=== PATIENT | female | born 1980 | race Two or more races ===

== ENCOUNTER 2018-08-30 08:46 | Inpatient (IN) | payer MEDICAID ==
[2018-08-30] MEDS: LIDOCAINE 1% (MDV) 20 ML INJ SC ×2 (09:29→10:59)
[2018-08-30] MEDS: HYDROCODONE/APAP (5/325) TAB PO ×3 (10:59→20:46)
[2018-08-30] MEDS: morphine 4 MG/ML VIAL IV (14:55)
[2018-08-30] MEDS: SOD CHLORIDE 0.9% 1,000 ML IV (14:55)
[2018-08-30] MEDS: ONDANSETRON 4 MG INJ IV (14:56)
[2018-08-30 15:03] LABS: ADD MAN DIFF? NO
[2018-08-30 15:09] LABS: WHITE BLOOD COUNT 13.1 10^3/ul (4.8-10.8)
[2018-08-30 15:09] LABS: BASOPHIL # 0.1 10^3/ul (0.0-0.1); BASOPHILS % 0.6 % (0.0-2.0); EOSINOPHILS # 0.1 10^3/ul (0.0-0.5); EOSINOPHILS % 0.5 % (0.0-7.0); HEMATOCRIT 41.6 % (37.0-47.0); HEMOGLOBIN 14.3 g/dl (12.0-16.0); LYMPHOCYTES # 3.2 10^3/ul (0.8-2.9); LYMPHOCYTES % 24.2 % (15.0-51.0); MEAN CORPUSCULAR HEMOGLOBIN 31.4 pg (29.0-33.0); MEAN CORPUSCULAR HGB CONC 34.4 g/dl (32.0-37.0); MEAN CORPUSCULAR VOLUME 91.4 fl (82.0-101.0); MEAN PLATELET VOLUME 10.1 fl (7.4-10.4); MONOCYTE # 0.8 10^3/ul (0.3-0.9); MONOCYTES % 6.3 % (0.0-11.0); NEUTROPHIL # 8.9 10^3/ul (1.6-7.5); PLATELET COUNT 329 10^3/UL (140-415); RED BLOOD COUNT 4.55 10^6/ul (4.20-5.40); RED CELL DISTRIBUTION WIDTH 11.7 % (11.5-14.5)
[2018-08-30] MEDS: PIPER-TAZO 3.375 GM IV (PMX) 100 ML IVPB (15:12)
[2018-08-30 15:33] LABS: ALANINE AMINOTRANSFERASE 15 IU/L (13-69); ALBUMIN 4.2 g/dl (3.3-4.9); ALKALINE PHOSPHATASE 69 IU/L (42-121); ANION GAP 9 (5-13); ASPARTATE AMINO TRANSFERASE 24 IU/L (15-46); BILIRUBIN,INDIRECT 0.9 mg/dl (0-1.1); BILIRUBIN,TOTAL 0.9 mg/dl (0.2-1.3); BLOOD UREA NITROGEN 6 mg/dl (7-20); CALCIUM 9.7 mg/dl (8.4-10.2); CARBON DIOXIDE 30 mmol/L (21-31); CHLORIDE 99 mmol/L (97-110); CREATININE 0.38 mg/dl (0.44-1.00); Estimated GFR > 60 mL/min (>60); GLUCOSE 277 mg/dl (70-220); POTASSIUM 4.3 mmol/L (3.5-5.1); SODIUM 138 mmol/L (135-144); TOTAL PROTEIN 7.2 g/dl (6.1-8.1)
[2018-08-30] MEDS: FLUCONAZOLE 150 MG TAB PO (16:04)
[2018-08-30] MEDS ORDERED: ACETAMINOPHEN 325 MG TAB PO ×2 (18:00→22:00)
[2018-08-30] MEDS ORDERED: ONDANSETRON 4 MG INJ IV (18:00)
[2018-08-30] MEDS: morphine 2 MG INJ IV (20:46)
[2018-08-30] MEDS: ONDANSETRON (ODT) 4 MG TAB ODT (20:46)
[2018-08-30] MEDS: SOD CHLORIDE 0.9% 500 ML IV (20:49)
[2018-08-30] MEDS ORDERED: DEXTROSE 50% 50 ML SYRINGE IV ×2 (22:00)
[2018-08-30] MEDS ORDERED: GLUCOSE GEL 15 GRAM TUBE BUCCAL (22:00)
[2018-08-30] MEDS ORDERED: GLUCAGON 1 MG INJ IM (22:00)
[2018-08-30] MEDS ORDERED: GLUCOSE GEL 15 GRAM TUBE PO ×2 (22:00)
[2018-08-30] MEDS: INSULIN GLARGINE [LANTus] (100 UNITS/ML) SYG SC (22:53)
[2018-08-30] MEDS: INSULIN ASPART [NOVOLOG] 3 ML PEN SC (22:56)
[2018-08-31] MEDS: ACCU-CHEK XX (02:14)
[2018-08-31] MEDS: morphine 2 MG INJ IV ×5 (02:19→21:38)
[2018-08-31 07:14] LABS: ADD MAN DIFF? NO
[2018-08-31 07:18] LABS: BASOPHIL # 0.1 10^3/ul (0.0-0.1); BASOPHILS % 0.5 % (0.0-2.0); EOSINOPHILS # 0.1 10^3/ul (0.0-0.5); HEMATOCRIT 34.4 % (37.0-47.0); HEMOGLOBIN 11.8 g/dl (12.0-16.0); LYMPHOCYTES # 3.4 10^3/ul (0.8-2.9); LYMPHOCYTES % 34.3 % (15.0-51.0); MEAN CORPUSCULAR HEMOGLOBIN 31.8 pg (29.0-33.0); MEAN CORPUSCULAR HGB CONC 34.3 g/dl (32.0-37.0); MEAN CORPUSCULAR VOLUME 92.7 fl (82.0-101.0); MEAN PLATELET VOLUME 10.2 fl (7.4-10.4); MONOCYTE # 0.8 10^3/ul (0.3-0.9); NEUTROPHIL # 5.6 10^3/ul (1.6-7.5); NEUTROPHILS % 55.6 % (39.0-77.0); PLATELET COUNT 278 10^3/UL (140-415); RED BLOOD COUNT 3.71 10^6/ul (4.20-5.40); RED CELL DISTRIBUTION WIDTH 11.8 % (11.5-14.5)
[2018-08-31 07:50] LABS: ALANINE AMINOTRANSFERASE 16 IU/L (13-69); ALBUMIN 3.2 g/dl (3.3-4.9); ALBUMIN/GLOBULIN RATIO 1.06; ALKALINE PHOSPHATASE 54 IU/L (42-121); ANION GAP 8 (5-13); ASPARTATE AMINO TRANSFERASE 19 IU/L (15-46); BILIRUBIN,INDIRECT 0.7 mg/dl (0-1.1); BILIRUBIN,TOTAL 0.7 mg/dl (0.2-1.3); BLOOD UREA NITROGEN 7 mg/dl (7-20); CARBON DIOXIDE 29 mmol/L (21-31); CHLORIDE 100 mmol/L (97-110); CREATININE 0.38 mg/dl (0.44-1.00); Estimated GFR > 60 mL/min (>60); GLUCOSE 233 mg/dl (70-220); POTASSIUM 3.5 mmol/L (3.5-5.1); SODIUM 137 mmol/L (135-144); TOTAL PROTEIN 6.2 g/dl (6.1-8.1)
[2018-08-31] MEDS: metFORMIN 500 MG TAB PO ×2 (08:22→17:21)
[2018-08-31] MEDS: INSULIN ASPART [NOVOLOG] 3 ML PEN SC ×5 (08:22→20:31)
[2018-08-31 08:52] LABS: HEMOGLOBIN A1C 13.9 % (0-5.9)
[2018-08-31] MEDS: FLUCONAZOLE 200 MG (PMX) 100 ML IVPB (15:49)
[2018-08-31] MEDS ORDERED: INSULIN GLARGINE [LANTus] (100 UNITS/ML) SYG SC (20:00)
[2018-08-31] MEDS: INSULIN GLARGINE [LANTus] (100 UNITS/ML) SYG SC (20:32)
[2018-09-01] MEDS: morphine 2 MG INJ IV ×6 (01:26→22:10)
[2018-09-01] MEDS: ACCU-CHEK XX (01:31)
[2018-09-01] MEDS ORDERED: VITAMIN A & D 5 GM OINT PACKET TOP (02:42)
[2018-09-01 06:05] LABS: ADD MAN DIFF? NO
[2018-09-01 06:07] LABS: WHITE BLOOD COUNT 11.5 10^3/ul (4.8-10.8)
[2018-09-01 06:07] LABS: BASOPHIL # 0.1 10^3/ul (0.0-0.1); BASOPHILS % 0.4 % (0.0-2.0); EOSINOPHILS # 0.1 10^3/ul (0.0-0.5); HEMOGLOBIN 12.5 g/dl (12.0-16.0); LYMPHOCYTES # 2.8 10^3/ul (0.8-2.9); LYMPHOCYTES % 24.1 % (15.0-51.0); MEAN CORPUSCULAR HEMOGLOBIN 31.1 pg (29.0-33.0); MEAN CORPUSCULAR HGB CONC 33.8 g/dl (32.0-37.0); MEAN PLATELET VOLUME 9.9 fl (7.4-10.4); MONOCYTE # 0.9 10^3/ul (0.3-0.9); MONOCYTES % 7.8 % (0.0-11.0); NEUTROPHIL # 7.6 10^3/ul (1.6-7.5); NEUTROPHILS % 66.1 % (39.0-77.0); PLATELET COUNT 297 10^3/UL (140-415); RED BLOOD COUNT 4.02 10^6/ul (4.20-5.40); RED CELL DISTRIBUTION WIDTH 11.9 % (11.5-14.5)
[2018-09-01 06:37] LABS: ALANINE AMINOTRANSFERASE 13 IU/L (13-69); ALBUMIN 3.4 g/dl (3.3-4.9); ALBUMIN/GLOBULIN RATIO 1.17; ALKALINE PHOSPHATASE 53 IU/L (42-121); ANION GAP 6 (5-13); ASPARTATE AMINO TRANSFERASE 26 IU/L (15-46); BILIRUBIN,INDIRECT 0.5 mg/dl (0-1.1); BILIRUBIN,TOTAL 0.5 mg/dl (0.2-1.3); BLOOD UREA NITROGEN 9 mg/dl (7-20); CALCIUM 9.1 mg/dl (8.4-10.2); CARBON DIOXIDE 32 mmol/L (21-31); CHLORIDE 98 mmol/L (97-110); CREATININE 0.43 mg/dl (0.44-1.00); Estimated GFR > 60 mL/min (>60); GLUCOSE 217 mg/dl (70-220); POTASSIUM 4.2 mmol/L (3.5-5.1); SODIUM 136 mmol/L (135-144); TOTAL PROTEIN 6.3 g/dl (6.1-8.1)
[2018-09-01] MEDS: metFORMIN 500 MG TAB PO ×2 (08:30→17:11)
[2018-09-01] MEDS: INSULIN ASPART [NOVOLOG] 3 ML PEN SC ×7 (08:32→20:44)
[2018-09-01] MEDS: HYDROCODONE/APAP (5/325) TAB PO ×3 (10:45→23:35)
[2018-09-01] MEDS: FLUCONAZOLE 200 MG (PMX) 100 ML IVPB (14:51)
[2018-09-01] MEDS: PIPER-TAZO 3.375 GM IV (PMX) 100 ML IVPB ×2 (16:54→22:11)
[2018-09-01] MEDS: INSULIN GLARGINE [LANTus] (100 UNITS/ML) SYG SC (20:43)
[2018-09-02] MEDS: morphine 2 MG INJ IV ×5 (02:37→21:01)
[2018-09-02] MEDS: ACCU-CHEK XX (02:39)
[2018-09-02] MEDS: PIPER-TAZO 3.375 GM IV (PMX) 100 ML IVPB ×3 (05:43→20:53)
[2018-09-02 06:19] LABS: ADD MAN DIFF? NO
[2018-09-02 06:24] LABS: WHITE BLOOD COUNT 11.9 10^3/ul (4.8-10.8)
[2018-09-02 06:24] LABS: BASOPHIL # 0.1 10^3/ul (0.0-0.1); BASOPHILS % 0.4 % (0.0-2.0); EOSINOPHILS # 0.1 10^3/ul (0.0-0.5); EOSINOPHILS % 1.1 % (0.0-7.0); HEMATOCRIT 34.4 % (37.0-47.0); HEMOGLOBIN 11.7 g/dl (12.0-16.0); LYMPHOCYTES # 3.4 10^3/ul (0.8-2.9); LYMPHOCYTES % 28.4 % (15.0-51.0); MEAN CORPUSCULAR HEMOGLOBIN 31.3 pg (29.0-33.0); MONOCYTES % 8.3 % (0.0-11.0); NEUTROPHIL # 7.3 10^3/ul (1.6-7.5); NEUTROPHILS % 61.3 % (39.0-77.0); PLATELET COUNT 284 10^3/UL (140-415); RED BLOOD COUNT 3.74 10^6/ul (4.20-5.40); RED CELL DISTRIBUTION WIDTH 11.9 % (11.5-14.5)
[2018-09-02 06:48] LABS: ALANINE AMINOTRANSFERASE 17 IU/L (13-69); ALBUMIN 3.3 g/dl (3.3-4.9); ALBUMIN/GLOBULIN RATIO 1.03; ALKALINE PHOSPHATASE 53 IU/L (42-121); ANION GAP 8 (5-13); ASPARTATE AMINO TRANSFERASE 20 IU/L (15-46); BILIRUBIN,INDIRECT 0.4 mg/dl (0-1.1); BILIRUBIN,TOTAL 0.4 mg/dl (0.2-1.3); BLOOD UREA NITROGEN 9 mg/dl (7-20); CALCIUM 9.1 mg/dl (8.4-10.2); CARBON DIOXIDE 29 mmol/L (21-31); CHLORIDE 98 mmol/L (97-110); Estimated GFR > 60 mL/min (>60); GLUCOSE 203 mg/dl (70-220); POTASSIUM 3.5 mmol/L (3.5-5.1); SODIUM 135 mmol/L (135-144); TOTAL PROTEIN 6.5 g/dl (6.1-8.1)
[2018-09-02] MEDS: HYDROCODONE/APAP (5/325) TAB PO ×2 (07:44→17:21)
[2018-09-02] MEDS: metFORMIN 500 MG TAB PO ×2 (08:29→17:24)
[2018-09-02] MEDS: INSULIN ASPART [NOVOLOG] 3 ML PEN SC ×7 (08:31→20:53)
[2018-09-02] MEDS: DOCUSATE SODIUM 100 MG CAP PO ×2 (09:30→20:45)
[2018-09-02] MEDS ORDERED: ONDANSETRON 4 MG INJ IV (09:30)
[2018-09-02] MEDS: METOCLOPRAMIDE 10 MG INJ IV ×4 (09:39→23:46)
[2018-09-02] MEDS: INSULIN GLARGINE [LANTus] (100 UNITS/ML) SYG SC ×2 (11:22→20:52)
[2018-09-02] MEDS: FLUCONAZOLE 200 MG (PMX) 100 ML IVPB (15:22)
[2018-09-03] MEDS: ACCU-CHEK XX ×3 (02:00→20:23)
[2018-09-03] MEDS: METOCLOPRAMIDE 10 MG INJ IV ×3 (06:28→17:32)
[2018-09-03] MEDS: PIPER-TAZO 3.375 GM IV (PMX) 100 ML IVPB ×3 (06:28→21:19)
[2018-09-03] MEDS: morphine 2 MG INJ IV ×4 (06:57→21:27)
[2018-09-03 07:44] LABS: ADD MAN DIFF? NO
[2018-09-03 07:45] LABS: WHITE BLOOD COUNT 12.2 10^3/ul (4.8-10.8)
[2018-09-03 07:46] LABS: BASOPHIL # 0.1 10^3/ul (0.0-0.1); BASOPHILS % 0.5 % (0.0-2.0); EOSINOPHILS # 0.1 10^3/ul (0.0-0.5); EOSINOPHILS % 0.5 % (0.0-7.0); HEMATOCRIT 35.3 % (37.0-47.0); LYMPHOCYTES % 24.9 % (15.0-51.0); MEAN CORPUSCULAR HEMOGLOBIN 31.5 pg (29.0-33.0); MEAN CORPUSCULAR VOLUME 92.7 fl (82.0-101.0); MEAN PLATELET VOLUME 9.8 fl (7.4-10.4); MONOCYTES % 8.2 % (0.0-11.0); NEUTROPHIL # 7.9 10^3/ul (1.6-7.5); NEUTROPHILS % 65.3 % (39.0-77.0); PLATELET COUNT 323 10^3/UL (140-415); RED BLOOD COUNT 3.81 10^6/ul (4.20-5.40); RED CELL DISTRIBUTION WIDTH 11.7 % (11.5-14.5)
[2018-09-03 08:12] LABS: ALANINE AMINOTRANSFERASE 10 IU/L (13-69); ALBUMIN 3.4 g/dl (3.3-4.9); ALBUMIN/GLOBULIN RATIO 1.09; ALKALINE PHOSPHATASE 51 IU/L (42-121); ANION GAP 8 (5-13); ASPARTATE AMINO TRANSFERASE 26 IU/L (15-46); BILIRUBIN,INDIRECT 0.4 mg/dl (0-1.1); BILIRUBIN,TOTAL 0.4 mg/dl (0.2-1.3); BLOOD UREA NITROGEN 6 mg/dl (7-20); CALCIUM 9.1 mg/dl (8.4-10.2); CARBON DIOXIDE 28 mmol/L (21-31); CHLORIDE 100 mmol/L (97-110); CREATININE 0.39 mg/dl (0.44-1.00); Estimated GFR > 60 mL/min (>60); GLUCOSE 133 mg/dl (70-220); POTASSIUM 3.7 mmol/L (3.5-5.1); SODIUM 136 mmol/L (135-144); TOTAL PROTEIN 6.5 g/dl (6.1-8.1)
[2018-09-03] MEDS: INSULIN ASPART [NOVOLOG] 3 ML PEN SC ×7 (08:37→20:23)
[2018-09-03] MEDS: DOCUSATE SODIUM 100 MG CAP PO ×2 (08:38→20:23)
[2018-09-03] MEDS: metFORMIN 500 MG TAB PO (08:39)
[2018-09-03] MEDS: THIAMINE 100 MG TAB PO (12:15)
[2018-09-03] MEDS: FLUCONAZOLE 200 MG (PMX) 100 ML IVPB (13:39)
[2018-09-03] MEDS: GLIMEPIRIDE 2 MG TAB PO (17:32)
[2018-09-03] MEDS: metFORMIN 850 MG TAB PO (17:32)
[2018-09-03] MEDS: INSULIN GLARGINE [LANTus] (100 UNITS/ML) SYG SC (20:22)
[2018-09-04] MEDS: METOCLOPRAMIDE 10 MG INJ IV ×2 (00:36→06:11)
[2018-09-04] MEDS: ACCU-CHEK XX ×5 (02:00→20:28)
[2018-09-04] MEDS: PIPER-TAZO 3.375 GM IV (PMX) 100 ML IVPB (06:11)
[2018-09-04] MEDS: DOCUSATE SODIUM 100 MG CAP PO ×2 (07:31→20:14)
[2018-09-04] MEDS: INSULIN ASPART [NOVOLOG] 3 ML PEN SC ×4 (07:47→20:22)
[2018-09-04] MEDS: GLIMEPIRIDE 2 MG TAB PO ×2 (07:50→17:45)
[2018-09-04] MEDS: metFORMIN 850 MG TAB PO ×2 (07:50→17:46)
[2018-09-04] MEDS: THIAMINE 100 MG TAB PO (07:51)
[2018-09-04] MEDS ORDERED: VANCOMYCIN 1 GM (PMX) 250 ML IVPB (10:30)
[2018-09-04] MEDS ORDERED: VANCOMYCIN IV PER PHARMACY XX (11:00)
[2018-09-04] MEDS: morphine 2 MG INJ IV ×2 (12:01→20:13)
[2018-09-04] MEDS: VANCOMYCIN HCL 1.5 GM in SOD CHLORIDE 0.9% 250 ML IVPB (13:05)
[2018-09-04] MEDS: HYDROCODONE/APAP (5/325) TAB PO ×2 (14:16→23:35)
[2018-09-04] MEDS: DOXYCYCLINE 100 MG TAB PO (20:14)
[2018-09-04] MEDS: FLUCONAZOLE 200 MG (PMX) 100 ML IVPB (20:15)
[2018-09-04] MEDS: INSULIN GLARGINE [LANTus] (100 UNITS/ML) SYG SC (20:27)
[2018-09-04] MEDS: VANCOMYCIN 750 MG (PMX) 250 ML IVPB (23:29)
[2018-09-05] MEDS: ACCU-CHEK XX ×5 (02:00→21:11)
[2018-09-05] MEDS: INSULIN ASPART [NOVOLOG] 3 ML PEN SC ×4 (08:00→21:00)
[2018-09-05] MEDS: GLIMEPIRIDE 2 MG TAB PO ×2 (08:23→17:08)
[2018-09-05] MEDS: DOXYCYCLINE 100 MG TAB PO (08:23)
[2018-09-05] MEDS: THIAMINE 100 MG TAB PO (08:23)
[2018-09-05] MEDS: HYDROCODONE/APAP (5/325) TAB PO ×2 (08:23→20:12)
[2018-09-05] MEDS: DOCUSATE SODIUM 100 MG CAP PO ×2 (08:23→20:11)
[2018-09-05] MEDS: metFORMIN 850 MG TAB PO ×2 (08:24→17:08)
[2018-09-05 09:03] LABS: ADD MAN DIFF? NO
[2018-09-05 09:05] LABS: WHITE BLOOD COUNT 10.7 10^3/ul (4.8-10.8)
[2018-09-05 09:05] LABS: BASOPHIL # 0.1 10^3/ul (0.0-0.1); BASOPHILS % 0.7 % (0.0-2.0); EOSINOPHILS # 0.2 10^3/ul (0.0-0.5); EOSINOPHILS % 1.4 % (0.0-7.0); HEMATOCRIT 36.4 % (37.0-47.0); HEMOGLOBIN 12.1 g/dl (12.0-16.0); LYMPHOCYTES # 3.1 10^3/ul (0.8-2.9); MEAN CORPUSCULAR HEMOGLOBIN 30.9 pg (29.0-33.0); MEAN CORPUSCULAR HGB CONC 33.2 g/dl (32.0-37.0); MEAN CORPUSCULAR VOLUME 93.1 fl (82.0-101.0); MEAN PLATELET VOLUME 9.8 fl (7.4-10.4); MONOCYTE # 1.1 10^3/ul (0.3-0.9); NEUTROPHIL # 6.3 10^3/ul (1.6-7.5); NEUTROPHILS % 58.6 % (39.0-77.0); PLATELET COUNT 345 10^3/UL (140-415); RED BLOOD COUNT 3.91 10^6/ul (4.20-5.40); RED CELL DISTRIBUTION WIDTH 11.8 % (11.5-14.5)
[2018-09-05] MEDS: morphine 2 MG INJ IV ×2 (11:15→21:50)
[2018-09-05] MEDS: VANCOMYCIN 750 MG (PMX) 250 ML IVPB (11:16)
[2018-09-05] MEDS: FLUCONAZOLE 200 MG (PMX) 100 ML IVPB (13:57)
[2018-09-05] MEDS: CLINDAMYCIN 600 MG/D5W (PMX) 50 ML IVPB ×2 (15:13→21:47)
[2018-09-05] MEDS: INSULIN GLARGINE [LANTus] (100 UNITS/ML) SYG SC ×2 (20:00→20:51)
[2018-09-06] MEDS: ACCU-CHEK XX ×5 (02:00→21:00)
[2018-09-06] MEDS: CLINDAMYCIN 600 MG/D5W (PMX) 50 ML IVPB ×3 (05:56→22:03)
[2018-09-06] MEDS: GLIMEPIRIDE 2 MG TAB PO ×2 (06:55→17:11)
[2018-09-06] MEDS: INSULIN ASPART [NOVOLOG] 3 ML PEN SC ×4 (08:00→21:00)
[2018-09-06] MEDS: metFORMIN 850 MG TAB PO ×2 (08:25→17:11)
[2018-09-06] MEDS: THIAMINE 100 MG TAB PO (08:25)
[2018-09-06] MEDS: morphine 2 MG INJ IV ×3 (08:25→17:32)
[2018-09-06] MEDS: DOCUSATE SODIUM 100 MG CAP PO ×2 (08:30→20:18)
[2018-09-06 08:50] LABS: ADD MAN DIFF? NO
[2018-09-06 08:52] LABS: WHITE BLOOD COUNT 9.6 10^3/ul (4.8-10.8)
[2018-09-06 08:52] LABS: BASOPHIL # 0.1 10^3/ul (0.0-0.1); BASOPHILS % 0.5 % (0.0-2.0); EOSINOPHILS # 0.1 10^3/ul (0.0-0.5); EOSINOPHILS % 1.5 % (0.0-7.0); HEMATOCRIT 36.9 % (37.0-47.0); HEMOGLOBIN 12.4 g/dl (12.0-16.0); LYMPHOCYTES # 2.4 10^3/ul (0.8-2.9); LYMPHOCYTES % 24.6 % (15.0-51.0); MEAN CORPUSCULAR HEMOGLOBIN 30.9 pg (29.0-33.0); MEAN CORPUSCULAR HGB CONC 33.6 g/dl (32.0-37.0); MEAN PLATELET VOLUME 9.3 fl (7.4-10.4); MONOCYTE # 0.9 10^3/ul (0.3-0.9); MONOCYTES % 9.6 % (0.0-11.0); NEUTROPHIL # 6.1 10^3/ul (1.6-7.5); NEUTROPHILS % 63.2 % (39.0-77.0); PLATELET COUNT 384 10^3/UL (140-415); RED BLOOD COUNT 4.01 10^6/ul (4.20-5.40); RED CELL DISTRIBUTION WIDTH 11.7 % (11.5-14.5)
[2018-09-06 09:21] LABS: ALANINE AMINOTRANSFERASE 11 IU/L (13-69); ALBUMIN 3.7 g/dl (3.3-4.9); ALBUMIN/GLOBULIN RATIO 1.05; ALKALINE PHOSPHATASE 61 IU/L (42-121); ANION GAP 9 (5-13); ASPARTATE AMINO TRANSFERASE 39 IU/L (15-46); BILIRUBIN,INDIRECT 0.3 mg/dl (0-1.1); BILIRUBIN,TOTAL 0.3 mg/dl (0.2-1.3); BLOOD UREA NITROGEN 8 mg/dl (7-20); CALCIUM 9.6 mg/dl (8.4-10.2); CARBON DIOXIDE 28 mmol/L (21-31); CHLORIDE 103 mmol/L (97-110); CREATININE 0.44 mg/dl (0.44-1.00); Estimated GFR > 60 mL/min (>60); GLUCOSE 127 mg/dl (70-220); POTASSIUM 4.1 mmol/L (3.5-5.1); SODIUM 140 mmol/L (135-144); TOTAL PROTEIN 7.2 g/dl (6.1-8.1)
[2018-09-06] MEDS: HYDROCODONE/APAP (5/325) TAB PO ×2 (12:09→20:18)
[2018-09-06] MEDS: FLUCONAZOLE 200 MG (PMX) 100 ML IVPB (15:24)
[2018-09-06] MEDS: INSULIN GLARGINE [LANTus] (100 UNITS/ML) SYG SC (20:22)
[2018-09-07] MEDS: ACCU-CHEK XX ×5 (02:00→20:50)
[2018-09-07] MEDS: HYDROCODONE/APAP (5/325) TAB PO ×2 (02:20→09:00)
[2018-09-07] MEDS: CLINDAMYCIN 600 MG/D5W (PMX) 50 ML IVPB ×3 (05:33→22:10)
[2018-09-07] MEDS: DOCUSATE SODIUM 100 MG CAP PO ×2 (09:00→20:50)
[2018-09-07] MEDS: metFORMIN 850 MG TAB PO ×2 (09:00→17:11)
[2018-09-07] MEDS: GLIMEPIRIDE 2 MG TAB PO ×2 (09:01→17:11)
[2018-09-07] MEDS: THIAMINE 100 MG TAB PO (09:01)
[2018-09-07] MEDS: INSULIN ASPART [NOVOLOG] 3 ML PEN SC ×4 (09:01→20:48)
[2018-09-07] MEDS: FLUCONAZOLE 200 MG (PMX) 100 ML IVPB (14:55)
[2018-09-07] MEDS: morphine 2 MG INJ IV ×2 (17:52→20:52)
[2018-09-07] MEDS: INSULIN GLARGINE [LANTus] (100 UNITS/ML) SYG SC (20:49)
[2018-09-08] MEDS: HYDROCODONE/APAP (5/325) TAB PO ×2 (00:05→18:33)
[2018-09-08] MEDS: ACCU-CHEK XX ×5 (02:00→21:06)
[2018-09-08] MEDS: CLINDAMYCIN 600 MG/D5W (PMX) 50 ML IVPB ×3 (05:36→21:01)
[2018-09-08] MEDS: LEVOFLOXACIN 500 MG TAB PO (05:36)
[2018-09-08] MEDS: INSULIN ASPART [NOVOLOG] 3 ML PEN SC ×4 (08:00→21:00)
[2018-09-08] MEDS: metFORMIN 850 MG TAB PO ×2 (08:36→17:18)
[2018-09-08] MEDS: GLIMEPIRIDE 2 MG TAB PO ×2 (08:36→17:18)
[2018-09-08] MEDS: DOCUSATE SODIUM 100 MG CAP PO ×2 (08:39→21:00)
[2018-09-08] MEDS: THIAMINE 100 MG TAB PO (08:39)
[2018-09-08] MEDS: morphine 2 MG INJ IV ×3 (10:25→22:53)
[2018-09-08] MEDS: FLUCONAZOLE 200 MG (PMX) 100 ML IVPB (15:45)
[2018-09-08] MEDS ORDERED: SOD CHLORIDE 0.9% 1,000 ML IV (18:00)
[2018-09-08] MEDS: INSULIN GLARGINE [LANTus] (100 UNITS/ML) SYG SC (21:02)
[2018-09-09] MEDS: ACCU-CHEK XX ×5 (02:00→21:00)
[2018-09-09] MEDS: LEVOFLOXACIN 500 MG TAB PO (05:32)
[2018-09-09] MEDS: HYDROCODONE/APAP (5/325) TAB PO ×2 (05:33→19:30)
[2018-09-09] MEDS: CLINDAMYCIN 600 MG/D5W (PMX) 50 ML IVPB ×3 (05:33→22:54)
[2018-09-09] MEDS: INSULIN ASPART [NOVOLOG] 3 ML PEN SC ×4 (08:00→21:00)
[2018-09-09] MEDS: GLIMEPIRIDE 2 MG TAB PO ×2 (08:12→17:19)
[2018-09-09] MEDS: DOCUSATE SODIUM 100 MG CAP PO ×2 (08:12→21:00)
[2018-09-09] MEDS: metFORMIN 850 MG TAB PO ×2 (08:13→17:19)
[2018-09-09] MEDS: THIAMINE 100 MG TAB PO (08:13)
[2018-09-09] MEDS: morphine 2 MG INJ IV (12:08)
[2018-09-09] MEDS: FLUCONAZOLE 200 MG (PMX) 100 ML IVPB (13:48)
[2018-09-09] MEDS: INSULIN GLARGINE [LANTus] (100 UNITS/ML) SYG SC (21:14)
[2018-09-10] MEDS: DEXTROSE 5%-0.45% NACL 1,000 ML IV ×2 (00:24→08:29)
[2018-09-10] MEDS: INSULIN ASPART [NOVOLOG] 3 ML PEN SC ×6 (00:33→23:15)
[2018-09-10] MEDS: morphine 2 MG INJ IV ×2 (01:20→12:10)
[2018-09-10] MEDS: CLINDAMYCIN 600 MG/D5W (PMX) 50 ML IVPB ×2 (05:06→16:56)
[2018-09-10] MEDS: ACCU-CHEK XX ×4 (06:08→23:15)
[2018-09-10] MEDS: GLIMEPIRIDE 2 MG TAB PO ×2 (06:09→17:18)
[2018-09-10] MEDS: LEVOFLOXACIN 500 MG TAB PO (06:11)
[2018-09-10] MEDS: THIAMINE 100 MG TAB PO (08:25)
[2018-09-10] MEDS: DOCUSATE SODIUM 100 MG CAP PO ×2 (08:25→23:16)
[2018-09-10] MEDS: metFORMIN 850 MG TAB PO ×2 (08:25→17:18)
[2018-09-10 11:33] LABS: ADD MAN DIFF? NO
[2018-09-10 11:42] LABS: BASOPHIL # 0.1 10^3/ul (0.0-0.1); BASOPHILS % 0.7 % (0.0-2.0); EOSINOPHILS # 0.1 10^3/ul (0.0-0.5); EOSINOPHILS % 1.6 % (0.0-7.0); HEMATOCRIT 38.3 % (37.0-47.0); LYMPHOCYTES # 2.6 10^3/ul (0.8-2.9); LYMPHOCYTES % 37.3 % (15.0-51.0); MEAN CORPUSCULAR HEMOGLOBIN 30.9 pg (29.0-33.0); MEAN CORPUSCULAR HGB CONC 33.9 g/dl (32.0-37.0); MEAN PLATELET VOLUME 9.2 fl (7.4-10.4); MONOCYTE # 0.5 10^3/ul (0.3-0.9); MONOCYTES % 7.6 % (0.0-11.0); NEUTROPHIL # 3.6 10^3/ul (1.6-7.5); NEUTROPHILS % 51.7 % (39.0-77.0); PLATELET COUNT 510 10^3/UL (140-415); RED BLOOD COUNT 4.21 10^6/ul (4.20-5.40); RED CELL DISTRIBUTION WIDTH 11.8 % (11.5-14.5)
[2018-09-10] MEDS: FLUCONAZOLE 200 MG (PMX) 100 ML IVPB (13:53)
[2018-09-10] MEDS: HYDROCODONE/APAP (5/325) TAB PO (13:54)
[2018-09-10] MEDS ORDERED: AMPICILLIN/SULB 3 GM/NS (PMX) 100 ML IVPB (18:00)
[2018-09-10] MEDS ORDERED: MIDAZOLAM 1 MG/ML 2 ML INJ (20:43)
[2018-09-10] MEDS ORDERED: FENTAnyl 50 MCG/ML VIAL (20:44)
[2018-09-10] MEDS ORDERED: ONDANSETRON 4 MG INJ IV (21:00)
[2018-09-10] MEDS ORDERED: FENTAnyl 50 MCG/ML VIAL IV (21:00)
[2018-09-10] MEDS ORDERED: MICONAZOLE 100 MG VAG SUPP VAG (21:00)
[2018-09-10] MEDS ORDERED: DIPHENHYDRAMINE 50 MG INJ IV (21:00)
[2018-09-10] MEDS ORDERED: METOCLOPRAMIDE 10 MG INJ IV (21:00)
[2018-09-10] MEDS ORDERED: LIDOCAINE 2% (SDV) 5 ML INJ (21:35)
[2018-09-10] MEDS ORDERED: PROPOFOL 60 ML (21:35)
[2018-09-10] MEDS: BUPIVACAINE 0.5% (SDV) 30 ML INJ (21:50)
[2018-09-10] MEDS: HYDROmorphONE 1 MG/5 ML IV SYRINGE IV ×3 (21:54→22:11)
[2018-09-10] MEDS ORDERED: IBUPROFEN 600 MG TAB PO (22:00)
[2018-09-10] MEDS ORDERED: HYDROCODONE/APAP (10/325) TAB PO (22:00)
[2018-09-10] MEDS ORDERED: ACETAMINOPHEN 325 MG TAB PO (22:00)
[2018-09-10] MEDS ORDERED: HYDROCODONE/APAP (5/325) TAB PO (22:00)
[2018-09-10] MEDS: MEPERIDINE 25 MG INJ IV (22:37)
[2018-09-10] MEDS: INSULIN GLARGINE [LANTus] (100 UNITS/ML) SYG SC (23:53)
[2018-09-10] MEDS: AMPICILLIN/SULB 3 GM/NS (PMX) 100 ML IVPB (23:54)
[2018-09-11] MEDS: morphine 2 MG INJ IV ×6 (00:08→23:01)
[2018-09-11] MEDS: AMPICILLIN/SULB 3 GM/NS (PMX) 100 ML IVPB ×4 (04:48→21:05)
[2018-09-11] MEDS: ACCU-CHEK XX ×4 (07:00→21:00)
[2018-09-11] MEDS: INSULIN ASPART [NOVOLOG] 3 ML PEN SC ×4 (08:00→21:00)
[2018-09-11] MEDS: DOCUSATE SODIUM 100 MG CAP PO ×2 (08:11→21:05)
[2018-09-11] MEDS: metFORMIN 850 MG TAB PO ×2 (08:12→17:22)
[2018-09-11] MEDS: GLIMEPIRIDE 2 MG TAB PO ×2 (08:12→17:23)
[2018-09-11] MEDS: THIAMINE 100 MG TAB PO (08:12)
[2018-09-11] MEDS: HYDROCODONE/APAP (5/325) TAB PO ×2 (10:28→21:05)
[2018-09-11] MEDS: FLUCONAZOLE 200 MG (PMX) 100 ML IVPB (13:37)
[2018-09-11] MEDS: INSULIN GLARGINE [LANTus] (100 UNITS/ML) SYG SC (21:02)
[2018-09-12] MEDS: AMPICILLIN/SULB 3 GM/NS (PMX) 100 ML IVPB ×2 (03:58→10:13)
[2018-09-12] MEDS: ACCU-CHEK XX ×2 (07:00→11:30)
[2018-09-12] MEDS: INSULIN ASPART [NOVOLOG] 3 ML PEN SC ×2 (08:00→12:00)
[2018-09-12] MEDS: morphine 2 MG INJ IV ×2 (08:06→11:24)
[2018-09-12] MEDS: GLIMEPIRIDE 2 MG TAB PO (08:14)
[2018-09-12] MEDS: THIAMINE 100 MG TAB PO (08:14)
[2018-09-12] MEDS: metFORMIN 850 MG TAB PO (08:15)
[2018-09-12] MEDS: DOCUSATE SODIUM 100 MG CAP PO (10:13)
[2018-09-12] MEDS: SILVER NITRATE SWAB TOP (10:52)
[2018-09-12] MEDS: LIDOCAINE 1% (MDV) 20 ML INJ INJ (11:00)
[2018-09-12] MEDS ORDERED: LIDOCAINE 1% (MPF) 30 ML INJ INJ (11:00)
== END 2018-09-12 16:32 | disposition home or self-care (01) | DRG 746 ==
LOC: FTE 08:46 → 5EC 17:38
PROC: 0U9M0ZX Drainage of Vulva, Open Approach, Diagnostic (ICD-10-PCS; principal; 2018-09-10 20:00)
PROC: 0U9M0ZZ Drainage of Vulva, Open Approach (ICD-10-PCS; 2018-09-10 20:49)
DX: N76.4 Abscess of vulva (principal); L03.315 Cellulitis of perineum; E11.65 Type 2 diabetes mellitus with hyperglycemia; B37.3 Candidiasis of vulva and vagina; K76.0 Fatty (change of) liver, not elsewhere classified; Z79.84 Long term (current) use of oral hypoglycemic drugs
CPT/HCPCS: 72192; 74176; 80053; 81025; 82962; 83036; 85025; 87070; 87075; 87102; 87116; 96361; 96365; 96375; 99217; 99285-25